=== PATIENT | female | born 1995 | race Hispanic/Latino ===

== ENCOUNTER 2021-06-24 17:44 | Emergency (ER) | payer BC, OTHER ==
[~2021-06-24] VITALS: Ht 144.8 cm; Wt 3.3 kg
[2021-06-24] MEDS ORDERED: 0.9%NACL 1000ML 1,000 ML IV ONE (18:08)
[2021-06-24 18:15] LABS: BASOPHILS % (AUTO) 0.2 % (0.0-5.0); HEMATOCRIT 41.2 % (36-48); LYMPHOCYTES % (AUTO) 12.6 % (21.0-51.0); MEAN CORPUSCULAR HEMOGLOBIN 31.1 pg (27.0-33.0); MEAN CORPUSCULAR HGB CONC 34.5 g/dL (32.0-36.0); MEAN CORPUSCULAR VOLUME 90.2 fL (79-99); MONOCYTES % (AUTO) 6.6 % (3.0-13.0); NEUTROPHILS % (AUTO) 80.3 % (40.0-77.0); PLATELET COUNT (AUTO) 464 K/uL (130-400); RED BLOOD CELL COUNT(AUTO) 4.57 MIL/uL (4.00-5.50); RED CELL DISTRIBUTION WIDTH 12.6 % (11.0-15.5); WHITE BLOOD COUNT (AUTO) 15.2 K/uL (4.8-10.8)
[2021-06-24 18:26] LABS: CREATININE 1.2 mg/dL (0.5-1.5); POTASSIUM 3.2 mmol/L (3.5-5.1)
[2021-06-24 18:31] LABS: ALBUMIN 4.6 g/dL (3.5-5.0); TOTAL PROTEIN, SERUM 8.4 g/dL (6.0-8.3)
[2021-06-24 19:54] LABS: APPEARANCE,URINE Clear (CLEAR); BILIRUBIN,URINE Negative (NEGATIVE); COLOR,URINE Yellow (YELLOW); GLUCOSE, URINE (UA) Negative (NEGATIVE); KETONES,URINE Trace mg/dL (NEGATIVE); LEUKOCYTE ESTERASE ,URINE Small (NEGATIVE); NITRATE,URINE Negative (NEGATIVE); OCCULT BLOOD,URINE Negative (NEGATIVE); PH,URINE 6.5 (5.0-8.0); PROTEIN,URINE Trace mg/dL (NEGATIVE); UROBILINOGEN,URINE 0.2 mg/dL (0.2-1.0)
[2021-06-24 19:56] LABS: HCG,QUAL RESULT NEGATIVE (NEGATIVE)
[2021-06-24 20:00] LABS: BACTERIA,URINE Few /HPF (None Seen); RBC,URINE 0-1 /HPF (0-1)
[2021-06-24] MEDS ORDERED: POTASSIUM BICARB/CIT AC 25 MEQ TABLET.EFF PO ONE (20:00)
[2021-06-24 20:01] LABS: SQUAMOUS EPITHELIAL CELL,UR Few /HPF (0-2)
[2021-06-24 20:12] LABS: AMPHET/METH SCREEN,URINE NEGATIVE (NEGATIVE); BARBITURATE SCREEN, URINE NEGATIVE (NEGATIVE); BENZODIAZEPINES SCREEN,URINE NEGATIVE (NEGATIVE); CANNABINOID SCREEN,URINE POSITIVE (NEGATIVE); COCAINE SCREEN,URINE NEGATIVE (NEGATIVE); OPIATE SCREEN,URINE NEGATIVE (NEGATIVE); PHENCYCLIDINE SCREEN,URINE NEGATIVE (NEGATIVE)
[2021-06-24] MEDS ORDERED: LORAZEPAM 2 MG/ML 1 ML VIAL IVP ONE (21:00)
[2021-06-25 01:42] VITALS: BP 128/66
== END 2021-06-25 01:40 | disposition home or self-care (01) ==
LOC: EDH 17:44
DX: R56.9 Unspecified convulsions (principal); R41.0 Disorientation, unspecified
CPT/HCPCS: 36415; 70450; 80053; 80305; 81001; 81025; 85025; 96361; 96374; 99284; J2060; J7030

== ENCOUNTER 2023-12-12 20:52 | Emergency (ER) | payer BC ==
[~2023-12-12] VITALS: Ht 144.8 cm; Wt 67.6 kg
[2023-12-12 22:06] VITALS: BP 113/82; PULSE 88; RESP 20; O2SAT 100
== END 2023-12-12 22:09 | disposition home or self-care (01) ==
LOC: EDH 20:52
DX: Z04.9 Encounter for examination and observation for unspecified reason (principal)
CPT/HCPCS: 99281

== ENCOUNTER → 2025-07-27 | Emergency (ER) | payer BC ==
[~2025-07-27] VITALS: Ht 142.2 cm; Wt 62.6 kg
[~2025-07-27] MED LIST: KETO10 PO
[2025-07-27 22:44] VITALS: BP 152/87; PULSE 110; RESP 20; TEMP 99
--- NOTE | 2025-07-27 22:45 | NUR ---
UA CUP PROVIDED
--- NOTE | 2025-07-27 22:49 | NUR ---
PT CALLED BY HEMAL JIM, NO ANSWER, NOT IN LOBBY OR MAIN ER
--- NOTE | 2025-07-27 22:56 | NUR ---
CALLED NO ANSWER
== END ==
LOC: EDH 22:43
DX: Z04.89 Encounter for examination and observation for other specified reasons (principal); W10.8XXA Fall (on) (from) other stairs and steps, initial encounter; Y93.89 Activity, other specified; Y92.89 Other specified places as the place of occurrence of the external cause; Y99.8 Other external cause status
CPT/HCPCS: 99281

== ENCOUNTER 2025-07-28 05:53 | Emergency (ER) | payer BC ==
[~2025-07-28] VITALS: Ht 142.2 cm; Wt 65.8 kg
--- NOTE | 2025-07-28 06:15 | ERN ---
General Chief Complaint: Mechanical Fall Stated Complaint: FALL Time Seen by MD: 05:55 History of Present Illness Initial Comments 29-year-old female, history of epilepsy on medication no seizure in the last two years, who presents for a mechanical fall. Patient slipped down a few stairs last night. Mechanical. She landed on both her knees. She rolled her left ankle. She heard a right foot. Her main complaint is pain pain on the right foot near the base of the 1st toe. Neurovascularly intact full range of motion. She also has swelling and tenderness to the left lateral malleolus. Close neurovascularly intact. Full range of motion. She is ambulatory but has not antalgic gait. She does have bruising to both knees but full range of motion no signs of significant trauma to the knees. She did not hit her head. No blood thinners. Allergies: Coded Allergies: No Allergy Information Available (Verified Allergy, Unknown, 06/24/21) buspirone (Unverified Allergy, Unknown, 12/12/23) Home Meds Active Scripts Ketorolac Tromethamine (Toradol) 10 Mg Tab, 10 MG PO BID for pain for 5 Days, #10 TAB 0 Refills Prov:KARI ONEILL MD 07/28/25 Past Medical History Past Medical History: Seizure Medical History Other: LAST SEIZURE 2 YEARS AGO Past Surgical History: None Social History Social History: ETOH, Lives with family ROS Dictation CONSTITUTIONAL: No chills, no fever, no weakness, no diaphoresis, no malaise. HEAD/FACE: No signs of trauma. EENT: No eye pain, no blurred vision, no tearing, no double vision, no ear pain, no ear discharge, no nose pain, no nasal congestion, no throat pain, no throat swelling, no mouth pain. RESPIRATORY: No cough, no orthopnea, no SOB, no stridor, no wheezing. CARDIOVASCULAR: No chest pain, no edema, no palpitations, no syncope. GASTROINTESTINAL/ABDOMINAL: No abdominal pain, no constipation, no diarrhea, no nausea, no vomiting. GENITOURINARY: No abnormal discharge, no dysuria, no frequent urination, no hematuria. No complaints of pain in the genitals. MUSCULOSKELETAL: Right foot, left ankle pain INTEGUMENTARY: No change in color, no change in hair/nails, no dryness, no lesion, no lumps, no rash. NEUROLOGICAL/PSYCH: No anxiety, not depressed, no emotional problem, no headache, no numbness, no pre-existing deficit, no history of seizures, no tremors, no weakness. HEMATOLOGIC/LYMPHATIC: Not anemic, no history of blood clots, no apparent bleeding, no bruising, glands not swollen. All Systems Negative, Except as Noted. Physical Exam Physical Exam Dictation VITAL SIGNS: Reviewed. GENERAL APPEARANCE: Alert, oriented x3, no acute distress, obese. HEAD AND FACE: Non-traumatic. EYES: PERRL, pink conjunctivas, eyelid no trauma, anterior chamber clear. EARS: Pinnas intact and no signs of trauma or erythema. Ear canals clear and no discharge. TMs no erythema. NOSE: No discharge, no bleeding. OROPHARYNX: Mouth normal, teeth no caries, tongue pink. Pharynx clear, no erythema. Tonsils no exudates, no abscesses noted. Mucous membrane moist. NECK: Supple, non-tender, no thyromegaly, no masses, no JVD, no bruits. BREAST: Deferred. CHEST: No tenderness, no crepitus, no paradoxical movement, no retractions. LUNGS: Clear, well-ventilated, symmetric, no rales, no wheezing, no rhonchi, no stridor, good breath sounds bilaterally. HEART: Regular rate, regular rhythm, no murmur, no gallops. VASCULAR: No peripheral edema. ABDOMEN: Soft, positive bowel sounds, nondistended, no guarding, nontender, no rebound, no masses no hepatomegaly, no splenomegaly, no Nicholson's sign, no hernias. RECTAL: Deferred. GENITAL: Deferred. NEUROLOGICAL: Normal speech, gross motor function intact, gross sensory function intact. MUSCULOSKELETAL: Neck nontender, full range of motion, back nontender, full range of motion. Tenderness to the medial right foot near the base of the 1st toe, no swelling or injury. Full range of motion. Neurovascularly intact. Swelling tenderness to the left lateral malleolus, some bruising. Closed neurovascularly intact. EXTREMITIES: Nontender, full range of motion. SKIN: Color pink, dry, no turgor, no rash, no lacerations, no abrasions, no contusions. LYMPHATICS: Deferred. MDM CC: Fall, right foot, left ankle pain Historian: Patient Comorbidities: Epilepsy Limitations by social determinants of health: None Differential diagnosis: Fracture versus soft tissue injury. Vital signs are stable Patient took a Motrin prior to arrival Right foot x-ray: No acute fractures or abnormalities independently interpreted by me. Left ankle x-ray: No acute fractures or injury independently interpreted by me. Symptoms most consistent with sprain/strain has been in his soft tissue injury. No signs of bony abnormalities or fractures. Placed in an Randall wrap. We will recommend conservative management and PCP follow up. ED Course Orders Procedure Category Date Status Time Ankle Comp 3vws Lt RAD 07/28/25 Resulted 06:10 *Nursing CPOE 07/28/25 Transmitted Communication: 06:10 Foot Comp 3+Vws Rt RAD 07/28/25 Resulted 06:48 Foot Comp 3+Vws Lt RAD 07/28/25 Resulted 06:10 Vital Signs Date Time Temp Pulse Resp B/P (MAP) Pulse Ox O2 Delivery O2 Flow Rate FiO2 07/28/25 08:00 98.6 71 16 120/84 99 Room Air* 0 21 07/28/25 05:55 98.4 86 18 126/93 9 07/28/25 05:55 98.4 86 18 126/93 98 Room Air* 0 21 DX & DISP Disposition: Discharge Departure Impression: Primary Impression: Right foot sprain Additional Impression: Left ankle strain Condition: Stable Scripts Ketorolac Tromethamine (Toradol) 10 Mg Tab 10 MG PO BID for pain for 5 Days, #10 TAB 0 Refills Prov: KARI ONEILL MD 07/28/25 Additional Instructions: The x-rays do not show any fractures. Your symptoms are most consistent with a sprain/strain. Wear the Randall wrap that you have been provided. You can bear weight as tolerated. Alternate Tylenol (1000 mg) and ibuprofen (600 mg) every4 hours as needed for pain. Ice your injuries for at least 20 minutes3 times per day for the next48 hours. This will help with the pain and inflammation. If you continue with symptoms for longer than five days, I recommend that you follow up with the primary doctor. You may need further studies and imaging. Return to the emergency department as needed. Referrals: BHARTI GARNER MD (PCP) JOSE G PATINO DO Jul 28, 2025 06:15 KARI ONEILL MD Jul 28, 2025 07:45
--- NOTE | 2025-07-28 06:19 | NUR ---
LIAN WRAPPED APPLIED TO LEFT ANKLE ORDERED BY ED MD PATINO.
--- NOTE | 2025-07-28 07:05 | NUR ---
REPORT GIVEN TO MUNIR JENKINS
--- NOTE | 2025-07-28 07:32 | HMCIMG ---
EXAM: CR Left Foot, 3 Views. CLINICAL HISTORY: Pain. COMPARISON: None provided. FINDINGS: BONES: No acute fracture or aggressive appearing osseous lesion. JOINTS: The joint spaces appear within normal limits. No dislocation. SOFT TISSUES: The soft tissues are unremarkable. IMPRESSION: No acute osseous abnormality. /[place]
--- NOTE | 2025-07-28 07:34 | HMCIMG ---
EXAM: CR Right Foot, 4 Views. CLINICAL HISTORY: Fall. COMPARISON: None provided. FINDINGS: BONES: No acute fracture or aggressive appearing osseous lesion. JOINTS: The joint spaces appear within normal limits. No dislocation. SOFT TISSUES: The soft tissues are unremarkable. IMPRESSION: No acute osseous abnormality. /[place]
--- NOTE | 2025-07-28 07:35 | HMCIMG ---
EXAM: CR Left ankle, 3 Views. CLINICAL HISTORY: Pain, inner foot COMPARISON: None provided. FINDINGS: BONES: No acute fracture or aggressive appearing osseous lesion. JOINTS: The joint spaces appear within normal limits. No dislocation. No radiographic evidence of a joint effusion. SOFT TISSUES: The soft tissues are unremarkable. IMPRESSION: No acute osseous abnormality. /[place]
[2025-07-28] MEDS ORDERED: KETO10 PO (07:45)
[2025-07-28 08:00] VITALS: BP 120/84; PULSE 71; RESP 16; TEMP 98.6; O2SAT 99
--- NOTE | 2025-07-28 08:18 | NUR ---
PT RECEIVED HER DISCHARGE PAPERWORK,PRESCRIPTION AND EXCUSE. EDUCATED HER ON R.I.C.E, SHE VERBALIZED UNDERSTANDING.AMBULATED TO DISCHARGE WITH A SLIGHT LIMP,STEADILY,ACCOMPANIED BY HER MOTHER.
== END 2025-07-28 08:18 | disposition home or self-care (01) ==
LOC: EDH 05:53
DX: S93.601A Unspecified sprain of right foot, initial encounter (principal); S96.912A Strain of unspecified muscle and tendon at ankle and foot level, left foot, initial encounter; S80.01XA Contusion of right knee, initial encounter; S80.02XA Contusion of left knee, initial encounter; W01.0XXA Fall on same level from slipping, tripping and stumbling without subsequent striking against object, initial encounter; Y93.89 Activity, other specified; Y92.89 Other specified places as the place of occurrence of the external cause; Y99.8 Other external cause status
CPT/HCPCS: 73610; 73630; 99283